=== PATIENT | male | born 2000 | race Caucasian/White ===

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

== ENCOUNTER 2018-10-05 14:08 | Emergency (ER) | payer BC ==
--- NOTE | 2018-10-05 14:38 | ED ---
Neurological HPI - HPI Summary HPI Summary: A 18 y/o male brought in by [facility] ambulance presents to [facility] with a chief complaint of intermittent left arm and leg tingling since 05:00 10/05/18. At triage he rated his pain as a 0/10 in severity. He denies any numbness or tingling in his face. He denies fever, chills, erythema (eyes), sore throat, chest pain, shortness of breath, cough, abdominal pain, vomiting, nausea, dysuria, hematuria, myalgia, edema, rash and dizziness. He denies any relevant PMHx and does not take medication. He reports that he was stressed on 10/04/18 and smoked marijuana. - History of Current Complaint Stated Complaint: LEFT ARM TINGLING PER EMS Hx Obtained From: Patient, EMS Onset/Duration: Sudden Onset, Started hours ago, Still Present Timing: Intermittent Episodes Lasting: - minutes Onset Severity: Mild Current Severity: Mild Neurological Deficit Location: LUE, LLE Pain Intensity: 0 Pain Scale Used: 0-10 Numeric Character: Numbness/Tingling Aggravating: Nothing Alleviating: Nothing Associated Signs and Symptoms: Negative: Dizziness, Numbness, Nausea/Vomiting, Chest Pain - Allergy/Home Medications Allergies/Adverse Reactions: Allergies Allergy/AdvReac Type Severity Reaction Status Date / Time Penicillins Allergy Rash Verified 10/05/18 14:27 PMH/Surg Hx/FS Hx/Imm Hx Respiratory History: Reports: Hx Pneumonia Neurological History: Denies: Hx CVA - Surgical History Surgery Procedure, Year, and Place: none reported - Family History Known Family History: Positive: Other - alcohol abuse Negative: Cardiac Disease, Hypertension, Diabetes - Social History Alcohol Use: Occasionally Hx Substance Use: Yes Substance Use Type: Reports: Marijuana Smoking Status (MU): Never Smoked Tobacco Review of Systems Negative: Fever, Chills Negative: Erythema Negative: Sore Throat Negative: Chest Pain Negative: Shortness Of Breath, Cough Negative: Abdominal Pain, Vomiting, Nausea Negative: dysuria, hematuria Negative: Myalgia, Edema Negative: Rash Neurological: Negative - dizziness, face numbness or tingling Positive: Paresthesia - left arm and leg All Other Systems Reviewed And Are Negative: Yes Physical Exam - Summary Physical Exam Summary: Constitutional: Well-developed, Well-nourished, Alert. (-) Distressed Skin: Warm, Dry HENT: Normocephalic; Atraumatic Eyes: Conjunctiva normal Neck: Musculoskeletal ROM normal neck. (-) JVD, (-) Stridor, (-) Tracheal deviation Cardio: Rhythm regular, rate normal, Heart sounds normal; Intact distal pulses; The pedal pulses are 2+ and symmetric. Radial pulses are 2+ and symmetric. (-) Murmur Pulmonary/Chest wall: Effort normal. (-) Respiratory distress, (-) Wheezes, (-) Rales Abd: Soft. (-) Tenderness, (-) Distension, (-) Guarding, (-) Rebound Musculoskeletal: (-) Edema Lymph: (-) Cervical adenopathy Neuro: Alert, Oriented x3, Strength normal, Cranial nerves II-XII are grossly intact. (-) Dysmetria, (-) Nystagmus, (-) Ataxia by finger to nose testing, (-) Sensory deficit. Romberg negative. Two point discrimination intact. Psych: Mood and affect Normal Triage Information Reviewed: Yes Vital Signs Reviewed: Yes - Antelmo Coma Scale Best Eye Response: 4 - Spontaneous Best Motor Response: 6 - Obeys Commands Best Verbal Response: 5 - Oriented Coma Scale Total: 15 Diagnostics - Laboratory Result Diagrams: 10/05/18 14:38 10/05/18 14:38 Lab Statement: Any lab studies that have been ordered have been reviewed, and results considered in the medical decision making process. - CT Brain CT Interpretation Completed By: Radiologist Summary of CT Findings: NO EVIDENCE FOR ACUTE INTRACRANIAL ABNORMALITY. ED physician has reviewed this imaging report. Brain MRI CT Interpretation Completed By: Radiologist Summary of CT Findings: Unremarkable MRI of the brain. ED physician has reviewed this imaging report. Re-Evaluation - Re-Evaluation First Eval Re-Evaluation Time: 15:58 Change: Unchanged Comment: still feeling tingling. Reports drinking one cup a day of coffee, denies any bad stress responses in the past. Course/Dx - Course Course Of Treatment: A 18 y/o male brought in by [facility] ambulance presents to [facility] with a chief complaint of intermittent left arm and leg tingling since 05: 00 10/05/18. At triage he rated his pain as a 0/10 in severity. He denies any numbness or tingling in his face. He denies fever, chills, erythema (eyes), sore throat, chest pain, shortness of breath, cough, abdominal pain, vomiting, nausea, dysuria, hematuria, myalgia, edema, rash and dizziness. He denies any relevant PMHx and does not take medication. He reports that he was stressed on 10/04/18 and smoked marijuana. The physical exam was unremarkable. Romberg negative. Two point discrimination intact. Brain CT impression: NO EVIDENCE FOR ACUTE INTRACRANIAL ABNORMALITY. ED physician has reviewed this imaging report. Bloodwork, chemistries and toxicology obtained. The patient was presuptive positive for Ur cannabinoids screen. Case discussed with Dr. Amador, neuro, who will see the patient in the ED. After seeing the patient he recommends discharge with follow up. Brain MRI impression: Unremarkable MRI of the brain. ED physician has reviewed this imaging report. The patient will be discharged and follow up with Dr. Amador. He is agreeable with this plan. - Diagnoses Provider Diagnoses: Paresthesia - Physician Notifications Discussed Care Of Patient With: Adair Amador Time Discussed With Above Provider: 16:07 Instructed by Provider To: MD Will See In ED - After seeing the patient in the ED he recommends discharge and follow up. Discharge - Sign-Out/Discharge Documenting (check all that apply): Patient Departure - DC Patient Received Moderate/Deep Sedation with Procedure: No - Discharge Plan Condition: Stable Disposition: HOME Patient Education Materials: Paresthesia (ED) Referrals: Rodolfo Garcia MD [Primary Care Provider] - Adair Amador MD [Medical Doctor] - [facility] [Outside] (2-3 days) Additional Instructions: Follow up with Dr. Amador and [facility]. RETURN TO THE EMERGENCY DEPARTMENT FOR CHANGING OR WORSENING SYMPTOMS - Billing Disposition and Condition Condition: STABLE Disposition: Home - Attestation Statements Document Initiated by Scribe: Yes Documenting Scribe: Pj Chamorro Provider For Whom Yasmin is Documenting (Include Credential): Chidi Roberto MD Scribe Attestation: Pj Gale, scribed for Chidi Roberto MD on 10/05/18 at 2233. Scribe Documentation Reviewed: Yes Provider Attestation: The documentation as recorded by the Pj stearns accurately reflects the service I personally performed and the decisions made by Chidi cid MD Status of Scribe Document: Viewed
[2018-10-05 14:51] LABS: Hematocrit 41 % (42-52); Hemoglobin 13.7 g/dl (14.0-18.0); Mean Corpuscular HGB Conc 34 g/dl (31-36); Mean Corpuscular Hemoglobin 30 pg (27-31); Mean Corpuscular Volume 90 fL (80-94); Mean Platelet Volume 7.7 fL (7.4-10.4); Platelet Count 238 10^3/ul (150-450); Red Blood Count 4.53 10^6/ul (4.00-5.40); Red Cell Distribution Width 13 % (10.5-15); White Blood Count 3.4 10^3/ul (3.5-10.8)
[2018-10-05 15:10] LABS: ALT 30 U/L (7-52); AST 21 U/L (13-39); Albumin 4.9 g/dL (3.2-5.2); Albumin/Globulin Ratio 2.6 (1-3); Alkaline Phosphatase 72 U/L (34-104); Anion Gap 4 mmol/L (2-11); BUN/Creatinine Ratio 10.1 (8-20); Blood Urea Nitrogen 8 mg/dL (6-24); CO2 Carbon Dioxide 31 mmol/L (22-32); Calcium 9.9 mg/dL (8.6-10.3); Chloride 104 mmol/L (101-111); EGFR African American 151.3 (>60); Globulin 1.9 g/dL (2-4); Glucose 94 mg/dL (70-100); Potassium 4.4 mmol/L (3.5-5.0); Sodium 139 mmol/L (135-145); Total Protein 6.8 g/dL (6.4-8.9)
[2018-10-05 15:27] LABS: Barbiturates Urine Screen None Detected (None Detect); Benzodiazepine Urine Screen None Detected (None Detect); Urine Cannabinoids Screen Presumptive Positive (None Detect)
[2018-10-05 15:29] LABS: Alcohol < 10 mg/dL (<10)
[2018-10-05 18:04] VITALS: BP 126/69
--- NOTE | 2018-10-05 21:41 | CONS ---
NEUROLOGY CONSULTATION: DATE OF CONSULT: 10/05/18 - EMERGENCY DEPT REFERRING PHYSICIAN: Dr. Roberto CHIEF COMPLAINT: Left-sided numbness. 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 It persisted and he ended up presenting to the emergency room. He has not experienced numbness of his face. There is a little bit about the shoulder and chest. There are no problems with walking or using his limbs. There is no associated pain. There is no neck pain, facial numbness, or headache. There is no change in vision. There are no cognitive complaints. He was able to ambulate without difficulty. Over the course of the hours that he has been here in the emergency room, there has been gradual fading of the sense of numbness of his left side. There is a little bit still on the shoulder and hand. When he was in the MRI scanner, he felt like the left side was warm. Other than that he has no other symptoms. There is no prior history of transient neurological deficits and specifically of transient numbness. There is no history of migraines or epilepsy. There is no history of head trauma. He has not been sick recently. He is under academic stress because of upcoming midterms. PAST MEDICAL HISTORY: Notable for good health. MEDICATIONS: He is not on any prescription medications. ALLERGIES: He is allergic to PENICILLIN, which caused a rash. REVIEW OF SYSTEMS: Negative for diabetes, hypertension, cardiac, pulmonary, renal, GI, , psychiatric, or endocrine disorders. He has not had any recent fevers or chills. No change in weight. No neck or back pain. FAMILY HISTORY: Noncontributory. There is history of hypertension and diabetes. SOCIAL HISTORY: He is at [employer] and grew up in the [facility] in [place]. He went to [employer]. He smokes marijuana and did last night. No other drug use. He lives in a dorm. PHYSICAL EXAM: He is well nourished and well hydrated. Temperature 98.8, blood pressure 131/62, heart rate in the 60s and regular, respiratory rate is 12 , and oxygen saturation is 100% on room air. Heart is in a regular rate and rhythm without murmurs. Lungs are clear bilaterally. Carotid pulses are symmetrical and there are no cervical bruits. Oral mucosa is moist and atraumatic. Skin is cool and dry. There are no rashes. Neurological Exam: Pupils react equally from 5 to 3 mm. Eye movements are normal. Funduscopic exam is normal bilaterally. Optic discs are sharp. Visual bhat are full to confrontation. There is no ptosis. Palate and tongue appear normal. Speech is clear without dysarthric. Hearing is intact to tuning fork bilaterally. Facial musculature is intact and symmetric. Facial sensation to light touch and pin discrimination is intact and symmetric. Motor exam reveals normal muscle tone, strength, and bulk proximally and distally in upper and lower extremities. There is no pronator drift. Sensory exam to pin, light touch, vibration, and proprioception is intact in upper and lower extremities. Graphesthesia and object recognition in the hands is normal bilaterally. Deep tendon reflexes are intact and symmetric in upper and lower extremities. Plantar responses are flexor bilaterally. [id number]-cy-ixni maneuvers normal bilaterally. [id number] maneuver is normal. There is no rest, sustention, or action tremor. Finger taps are normal in the hands. Gait and station are normal. Romberg sign is absent. He can walk on his heels and toes. Tandem gait is normal. He is alert and oriented and excellent detailed historian. Memory is intact and language is fluent. There is normal attention, concentration, and adequate fund of knowledge. LABORATORY DATA: Notable for normal CBC other than white blood cell count 3.4 and hemoglobin 13.7. Chemistry is notable for globulin of 1.9 and otherwise a normal chemistry profile. Urine tox screen is positive for cannabinoids and negative for other substances. Other laboratory data includes a CT scan of the brain interpreted as normal and an MRI scan of the brain without contrast interpreted as normal. I reviewed both studies and I agree with interpretations. IMPRESSION: Impression is that of a transient hemisensory deficit with a normal exam and normal imaging. He just may be under some stress as his symptoms seemed to be fading. Although multiple sclerosis would certainly be a consideration and normal imaging and the fading of symptoms over less than 24 hours certainly speaks against that. There is no evidence of a peripheral neuropathy or other abnormalities on exam. I explained my impression to Derik and his mother and aunt who are present. I reviewed his MRI images at his request with him at the bedside. I told him that call my office if he is still having problems in the next week or 2 and I will reevaluate. They were given the opportunity to ask questions. [id number]/[facility] #: [id number] JAVIER
== END 2018-10-05 18:03 | disposition home or self-care (01) ==
LOC: ED 14:08
DX: R20.2 Paresthesia of skin (principal); Z88.0 Allergy status to penicillin
CPT/HCPCS: 36415; 70450; 70551; 80053; 80307; 80320; 83735; 85027; 99282; G0480

== ENCOUNTER 2019-03-31 23:21 | Emergency (ER) | payer BC ==
--- NOTE | 2019-04-01 00:46 | ED ---
Skin Complaint - HPI Summary HPI Summary: This patient is a 18 year old male presenting to [facility] with a chief complaint of rash 3 hours ago. The [place] and he believes he may have encountered poison mike. He states the rash is on his legs and up his back and he states it is pruritic. The patient states he had Aubree tea 2 hours prior to onset of symptoms and it could possibly be an allergic reaction from this. - History of Current Complaint Chief Complaint: EDRashSkinAbscess Stated Complaint: RASH PER PT Hx Obtained From: Patient Onset/Duration: Started Hours Ago Skin Exposure Onset/Duration: Hours Ago Pain Intensity: 0 Pain Scale Used: 0-10 Numeric - Allergy/Home Medications Allergies/Adverse Reactions: Allergies Allergy/AdvReac Type Severity Reaction Status Date / Time Penicillins Allergy Rash Verified 03/31/19 23:25 PMH/Surg Hx/FS Hx/Imm Hx Cardiovascular History: Denies: Hx Pacemaker/ICD Respiratory History: Reports: Hx Pneumonia Sensory History: Denies: Hx Hearing Aid Neurological History: Denies: Hx CVA Psychiatric History: Denies: Hx Panic Disorder - Surgical History Surgery Procedure, Year, and Place: none reported Infectious Disease History: No Infectious Disease History: Denies: Traveled Outside the [place] in Last 30 Days - Family History Known Family History: Positive: Other - alcohol abuse Negative: Cardiac Disease, Hypertension, Diabetes - Social History Alcohol Use: Occasionally Hx Substance Use: Yes Substance Use Type: Reports: Marijuana Smoking Status (MU): Never Smoked Tobacco Review of Systems Negative: Fever Positive: Rash All Other Systems Reviewed And Are Negative: Yes Physical Exam - Summary Physical Exam Summary: Appearance: Well-appearing, Well-nourished, lying in bed comfortable Skin: Warm, dry, no obvious rash. Diffuse coalescing urticaria lesions on the back, flanks, and thighs. Eyes: sclera anicteric, no conjunctival pallor ENT: mucous membranes moist Neck: deferred Respiratory: No signs of respiratory distress Cardiovascular: Appears well perfused, pulses are nml Abdomen: deferred Musculoskeletal: Moving all 4 extremities without obvious discomfort Neurological: Awake and alert, mentation is normal, speech is fluent and appropriate Psychiatric: affect is normal, does not appear anxious or depressed Triage Information Reviewed: Yes Vital Signs On Initial Exam: Initial Vitals Temp Pulse Resp BP Pulse Ox 99 F 81 16 128/84 99 03/31/19 23:24 03/31/19 23:24 03/31/19 23:24 03/31/19 23:24 03/31/19 23:24 Vital Signs Reviewed: Yes Diagnostics - Vital Signs Vital Signs Temp Pulse Resp BP Pulse Ox 03/31/19 23:24 99 F 81 16 128/84 99 - Laboratory Lab Statement: Any lab studies that have been ordered have been reviewed, and results considered in the medical decision making process. Course/Dx - Course Course Of Treatment: This patient is a 18 year old male presenting to [facility] with a chief complaint of rash 3 hours ago. The physical exam was remarkable for urticaria indicative of an allergic reaction. The patient was treated for the allergic reaction and was observed in the ED. A plan for discharge was discussed with the patient and he was agreeable with this plan. - Diagnoses Provider Diagnoses: Urticaria, Allergic reaction Discharge ED - Sign-Out/Discharge Documenting (check all that apply): Patient Departure - Discharge Patient Received Moderate/Deep Sedation with Procedure: No - Discharge Plan Condition: Good Disposition: HOME Patient Education Materials: Urticaria (ED) Referrals: Rodolfo Garcia MD [Primary Care Provider] - If Needed Additional Instructions: The rash may come and go over the next few days to a week. The mainstay of treatment is antihistamines. Benadryl is inexpensive and effective, though it can cause some sedation and wears off in 4-6 hours. New OTC antihistamines like zyrtec and claritin are also effective and tend to cause less sedation and only have to be dose once or twice daily, though they are more expensive. If this becomes a recurrent problem, a assistant professor of life sciences or mold preparer can do skin and blood tests to determine what you might be reacting to. - Billing Disposition and Condition Condition: GOOD Disposition: Home - Attestation Statements Document Initiated by Scribe: Yes Documenting Scribe: Emery Greenwood Provider For Whom Yasmin is Documenting (Include Credential): Ji Nichole MD Scribe Attestation: Emery Gale, scribed for Ji Nichole MD on 04/01/19 at 1911. Scribe Documentation Reviewed: Yes Provider Attestation: The documentation as recorded by the Emery stearns accurately reflects the service I personally performed and the decisions made by me, Ji Nichole MD Status of Scribe Document: Viewed
[2019-04-01] MEDS ORDERED: EPINEPHRINE 1 MG/ML 1 ML VIAL IM ONE (00:49)
[2019-04-01] MEDS ORDERED: diPHENhydraMINE PO* 50 MG PO ONE (00:50)
[2019-04-01 01:33] VITALS: BP 137/73
== END 2019-04-01 01:33 | disposition home or self-care (01) ==
LOC: ED 23:21
DX: L50.9 Urticaria, unspecified (principal); T78.40XA Allergy, unspecified, initial encounter; X58.XXXA Exposure to other specified factors, initial encounter; Z88.0 Allergy status to penicillin
CPT/HCPCS: 96372; 99281; A9270-GY